=== PATIENT | female | born 2000 | race Caucasian/White ===

== ENCOUNTER 2019-09-22 19:55 | Emergency (ER) | payer OTHER, SELFPAY ==
[~2019-09-22] VITALS: Ht 162.6 cm; Wt 68.0 kg
[2019-09-22 20:05] VITALS: BP 128/73
--- NOTE | 2019-09-22 20:25 | NUR ---
Dr. Escobar examining patient.
[2019-09-22 21:48] VITALS: BP 128/73
--- NOTE | 2019-09-22 21:48 | NUR ---
Patient discharged with v/s stable. Written and verbal after care instructions given and explained. Patient verbalized understanding. Ambulatory with steady gait. All questions addressed prior to discharge. Advised to follow up with PMD.
--- NOTE | 2019-09-25 10:16 | NUR ---
OBTAINED REPORT FROM KENNEY MCCRAY. -POSITIVE RESULTS COVID -HARD COPY PLACED IN INFECTION CONTROL BOX CHARGE NURSE NOTIFIED
== END 2019-09-22 21:48 | disposition home or self-care (01) ==
LOC: MED 19:55 → EEVIPCON 19:55 → MED 21:48
DX: J02.9 Acute pharyngitis, unspecified (principal); J45.909 Unspecified asthma, uncomplicated; Z20.828 Contact with and (suspected) exposure to other viral communicable diseases
CPT/HCPCS: 99283; U0003

== ENCOUNTER 2019-09-25 17:46 | Emergency (ER) | payer OTHER, SELFPAY ==
[~2019-09-25] VITALS: Ht 170.2 cm; Wt 59.0 kg
[2019-09-25 18:06] VITALS: BP 120/68
[2019-09-25 18:20] VITALS: BP 120/68
== END 2019-09-25 18:20 | disposition home or self-care (01) ==
LOC: MED 17:46
DX: U07.1 COVID-19 (principal); J02.9 Acute pharyngitis, unspecified; R05 Cough; R51 Headache
CPT/HCPCS: 99281; 99283